=== PATIENT | male | born 1935 | race Caucasian/White ===

== ENCOUNTER 2016-12-12 08:38 | Outpatient (CLI) | payer MEDICARE, OTHER | END 2016-12-12 08:39 | disposition home or self-care (01) | DX: I80.9 Phlebitis and thrombophlebitis of unspecified site (principal); E78.5 Hyperlipidemia, unspecified; K59.00 Constipation, unspecified; N40.1 Benign prostatic hyperplasia with lower urinary tract symptoms ==

== ENCOUNTER 2017-12-10 09:23 | Outpatient (CLI) | payer MEDICARE, OTHER ==
[2017-12-10 13:08] LABS: BASOPHILS % (AUTO) 0.8 %; EOSINOPHILS # (AUTO) 0.3 10^3/uL (0.0-0.7); EOSINOPHILS % (AUTO) 4.2 %; HGB - HEMOGLOBIN 15.6 g/dL (14.0-18.0); LYMPHOCYTES # (AUTO) 1.3 10^3/uL (1.5-3.5); LYMPHOCYTES % (AUTO) 21.6 %; MEAN CORPUSCULAR HEMOGLOBIN 31.4 pg (27.0-31.0); MEAN CORPUSCULAR HGB CONC 33.8 g/dL (32.0-36.0); MEAN CORPUSCULAR VOLUME 92.9 fL (80.0-94.0); MONOCYTES # (AUTO) 0.5 10^3/uL (0.0-1.0); MONOCYTES % (AUTO) 8.8 %; NEUTROPHILS # (AUTO) 3.9 10^3/uL (1.5-6.6); NEUTROPHILS % (AUTO) 64.6 %; PLT - PLATELET COUNT 231 10^3/uL (130-450); RED BLOOD COUNT 4.97 10^6/uL (4.70-6.10); RED CELL DISTRIBUTION WIDTH 14.2 % (12.0-15.0)
[2017-12-10 13:23] LABS: ALBUMIN 4.1 g/dL (3.2-5.5); ALBUMIN/GLOBULIN RATIO 1.9 (1.0-2.2); ALKALINE PHOSPHATASE 54 IU/L (42-121); ALT ALANINE AMINOTRANSFERASE 16 IU/L (10-60); AST ASPARTATE AMINOTRANSFERASE 16 IU/L (10-42); BILIRUBIN,TOTAL 0.8 mg/dL (0.2-1.0); BUN - BLOOD UREA NITROGEN 25 mg/dL (6-20); CALCIUM 8.9 mg/dL (8.5-10.3); CARBON DIOXIDE - CO2 28 mmol/L (21-32); CHLORIDE 106 mmol/L (101-111); CHOL/HDL RATIO 3.2 (<5.0); CHOLESTEROL 186 mg/dL; CREATININE 0.8 mg/dL (0.6-1.2); GFR - MDRD 92 (>89); GLUCOSE 92 mg/dL (70-100); HDL CHOLESTEROL 59 mg/dL; LDL CHOLESTEROL,CALCULATED 108 mg/dL; LDL/HDL RATIO 1.8 (<3.6); SODIUM 139 mmol/L (135-145); TOTAL PROTEIN 6.3 g/dL (6.7-8.2); VLDL CHOLESTEROL 19 mg/dL
[2017-12-10 13:39] LABS: PLATELET ESTIMATE, MANUAL NORMAL (130-450,000) (NORMAL); PLATELET MORPHOLOGY 2+ GIANT PLATELETS (NORMAL); RBC MORPHOLOGY (MULTIPLE) NORMAL APPEARANCE (NORMAL)
== END 2017-12-10 09:24 | disposition home or self-care (01) ==
LOC: LAB.WCP 09:23
PROVIDERS: ATTEND Family Medicine
DX: E78.5 Hyperlipidemia, unspecified (principal)
CPT/HCPCS: 36415; 80053; 80061; 83721; 85025

== ENCOUNTER 2018-01-30 07:42 | Day surgery (SDC) | payer MEDICARE, OTHER ==
[~2018-01-30 07:42] MED LIST: BRIMONIDINE 0.2% OPHTH DROPS 5 ML ONE; BSS/LIDOCAINE/EPINEPHRINE 1 ML SYRINGE ONE; CYCLOPENTOLATE 1% OPHTH DROPS 2 ML ONE; EPINEPHrine 1 MG/ML AMP ONE; KETOROLAC 0.45% OPHTH DROPS ONE; PHENYLEPHRINE 2.5% OPHTH 2 ML DROPS ONE; PROPARACAINE 0.5% OPHTH DROPS 15 ML ONE; TIMOLOL 0.5% OPHTH DROPS ONE; TRIAMCIN/MOXIFLOX OPHTHALMIC 0.6 ML VIAL IO ONE
[2018-01-30] MEDS ORDERED: LACTATED RINGERS 500 ML IV ONE (08:00)
[2018-01-30] MEDS ORDERED: KETOROLAC 0.45% OPHTH DROPS RIGHTEYE ONE (08:06)
[2018-01-30] MEDS ORDERED: CYCLOPENTOLATE 1% OPHTH DROPS 2 ML RIGHTEYE ONE (08:07)
[2018-01-30] MEDS ORDERED: PROPARACAINE 0.5% OPHTH DROPS 15 ML RIGHTEYE ONE ×2 (08:07→09:19)
[2018-01-30] MEDS ORDERED: PHENYLEPHRINE 2.5% OPHTH 2 ML DROPS RIGHTEYE ONE (08:07)
[2018-01-30] MEDS ORDERED: MIDAZOLAM 2 MG/2 ML VIAL IVP ONE (09:06)
[2018-01-30] MEDS ORDERED: EPINEPHrine 1 MG/ML AMP IR ONE (09:18)
[2018-01-30] MEDS ORDERED: TIMOLOL 0.5% OPHTH DROPS OPTH ONE (09:18)
[2018-01-30] MEDS ORDERED: CHONDR SULF/HYALURONATE SYRINGE IO ONE (09:18)
[2018-01-30] MEDS ORDERED: BRIMONIDINE 0.2% OPHTH DROPS 5 ML OPTH ONE (09:18)
[2018-01-30] MEDS ORDERED: BSS/LIDOCAINE/EPINEPHRINE 1 ML SYRINGE IO ONE (09:19)
[2018-01-30] MEDS ORDERED: VANCOMYCIN OPHTHALMI 8MG/0.8ML 8 MG/0.8 ML SYRINGE IO ONE (09:19)
[2018-01-30 09:36] VITALS: BP 113/66
--- NOTE | 2018-01-30 16:21 | OPERATIVE REPORT ---
DATE OF SERVICE: 01/30/2018 Physician: Sami Brewer MD PREOPERATIVE DIAGNOSIS: Visually significant cataract right eye. This was his first cataract surgery. This was also a complex cataract surgery due to floppy iris and poor dilation due to the use of Flomax; therefore, a Malyugin ring was used during the surgery. POSTOPERATIVE DIAGNOSIS: Visually significant cataract right eye. This was his first cataract surgery. This was also a complex cataract surgery due to floppy iris and poor dilation due to the use of Flomax; therefore, a Malyugin ring was used during the surgery. PROCEDURE: Phacoemulsification with posterior chamber intraocular lens implant, right eye. SURGEON: Sami Brewer MD ANESTHESIA: Monitored anesthesia care. COMPLICATIONS: None. OPERATIVE INDICATIONS: This is an 82-year-old man with progressive vision loss in the right eye due to 2-3+ nuclear sclerotic cataract. Best corrected visual acuity was 20/25 with glare to 20/70 in the right eye. Indications for surgery were overall decrease in vision, difficulty driving in low light or at night, difficulty driving at night because of headlights from other vehicles, and difficulty with glare or bright lights in any situation. He was consented at length concerning risks and benefits of cataract surgery, after which he expressed a desire to proceed with surgery. OPERATIVE PROCEDURE: The patient was taken into OR #3 and placed under monitored anesthesia care. A surgical timeout was conducted confirming correct patient, correct procedure, and correct surgical site. He was given topical anesthesia and then prepped and draped in the usual sterile fashion. The eye was entered at the 12 and 9-o'clock positions. Intracameral Shugarcaine was injected into the anterior chamber followed by Viscoat. A 7 mm Malyugin ring was then injected into the anterior chamber and engaged the pupil at 4 points to dilate the pupil. A continuous-tear curvilinear capsulorrhexis was then performed. Nucleus was hydrodissected and phacoemulsified. The cortex was evacuated using automated infusion and aspiration. Provisc was injected in the capsular bag and a 17.5 diopter intraocular lens was inserted into the bag. The Malyugin ring was then disinserted from the pupillary margin and removed from the anterior chamber. Approximately 0.8 mL of a mixture of triamcinolone and moxifloxacin was injected subconjunctivally in the superior quadrant for infection and inflammation prophylaxis. An additional 0.3 mL of vancomycin was also injected subconjunctivally in the superior quadrant. I and A was used to evacuate the viscoelastic material. The eye was inflated to physiologic pressure using balanced salt solution and found to be watertight. The patient was taken from the operating room in good condition, given postop instructions. TD: 01/30/2018 09:40
== END 2018-01-30 07:43 | disposition home or self-care (01) ==
LOC: SDS 07:42
PROVIDERS: ATTEND Ophthalmology
PROC: 08RJ3JZ Replacement of Right Lens with Synthetic Substitute, Percutaneous Approach (ICD-10-PCS; principal; 2018-01-30 09:00)
DX: H25.811 Combined forms of age-related cataract, right eye (principal); H21.81 Floppy iris syndrome; T44.6X5A Adverse effect of alpha-adrenoreceptor antagonists, initial encounter; N40.0 Benign prostatic hyperplasia without lower urinary tract symptoms; Z79.82 Long term (current) use of aspirin
CPT/HCPCS: 66982; A9270; J3490; V2632

== ENCOUNTER 2018-02-27 06:15 | Day surgery (SDC) | payer MEDICARE, OTHER ==
[2018-02-27] MEDS ORDERED: PHENYLEPHRINE 2.5% OPHTH 2 ML DROPS ONE (06:38)
[2018-02-27] MEDS ORDERED: KETOROLAC 0.45% OPHTH DROPS ONE (06:38)
[2018-02-27] MEDS ORDERED: CYCLOPENTOLATE 1% OPHTH DROPS 2 ML ONE (06:39)
[2018-02-27] MEDS ORDERED: PROPARACAINE 0.5% OPHTH DROPS 15 ML ONE (06:39)
[2018-02-27] MEDS ORDERED: CYCLOPENTOLATE 1% OPHTH DROPS 2 ML LEFTEYE ONE (06:45)
[2018-02-27] MEDS ORDERED: PHENYLEPHRINE 2.5% OPHTH 2 ML DROPS LEFTEYE ONE (06:46)
[2018-02-27] MEDS ORDERED: KETOROLAC 0.45% OPHTH DROPS LEFTEYE ONE (06:46)
[2018-02-27] MEDS ORDERED: PROPARACAINE 0.5% OPHTH DROPS 15 ML LEFTEYE ONE ×2 (06:46→07:43)
[2018-02-27] MEDS ORDERED: LACTATED RINGERS 500 ML IV ONE (06:57)
[2018-02-27] MEDS ORDERED: EPINEPHrine 1 MG/ML AMP ONE (07:12)
[2018-02-27] MEDS ORDERED: TRIAMCIN/MOXIFLOX OPHTHALMIC 0.6 ML VIAL IO ONE (07:12)
[2018-02-27] MEDS ORDERED: VANCOMYCIN OPHTHALMI 8MG/0.8ML 8 MG/0.8 ML SYRINGE IO ONE (07:13)
[2018-02-27] MEDS ORDERED: BRIMONIDINE 0.2% OPHTH DROPS 5 ML ONE (07:13)
[2018-02-27] MEDS ORDERED: BSS/LIDOCAINE/EPINEPHRINE 1 ML SYRINGE ONE (07:13)
[2018-02-27] MEDS ORDERED: TIMOLOL 0.5% OPHTH DROPS ONE (07:13)
[2018-02-27] MEDS ORDERED: MIDAZOLAM 2 MG/2 ML VIAL IVP ONE (07:33)
[2018-02-27] MEDS ORDERED: BRIMONIDINE 0.2% OPHTH DROPS 5 ML OPTH ONE (07:41)
[2018-02-27] MEDS ORDERED: CHONDR SULF/HYALURONATE SYRINGE IO ONE (07:42)
[2018-02-27] MEDS ORDERED: EPINEPHrine 1 MG/ML AMP IR ONE (07:42)
[2018-02-27] MEDS ORDERED: TIMOLOL 0.5% OPHTH DROPS OPTH ONE (07:42)
[2018-02-27] MEDS ORDERED: BSS/LIDOCAINE/EPINEPHRINE 1 ML SYRINGE IO ONE (07:43)
[2018-02-27 08:02] VITALS: BP 116/67
--- NOTE | 2018-02-27 10:03 | OPERATIVE REPORT ---
DATE OF SERVICE: 02/27/2018 Physician: Sami Brewer MD PREOPERATIVE DIAGNOSIS: Visually significant cataract, left eye. This is a complex cataract, due to floppy iris from Flomax, requiring pupil expansion with Malyugin ring. Cataract surgery was performed on the right eye on 01/30/2018. POSTOPERATIVE DIAGNOSIS: Visually significant cataract, left eye. This is a complex cataract, due to floppy iris from Flomax, requiring pupil expansion with Malyugin ring. Cataract surgery was performed on the right eye on 01/30/2018. PROCEDURE: Phacoemulsification with posterior chamber intraocular lens implant, left eye. SURGEON: Sami Brewer MD ANESTHESIA: Monitored anesthesia care. COMPLICATIONS: None. INDICATIONS: The patient is an 82-year-old man with progressive vision loss in the left eye due to 2-3+ nuclear sclerotic cataract. Best corrected visual acuity was 20/20, with glare to 20/400 in the left eye. Indications for surgery were difficulty driving at night because of head lights from other vehicles, and/or street lights, and difficulty with glare or bright lights in any situation. He was consented at length concerning risks and benefits of cataract surgery, after which he expressed a desire to proceed with surgery. OPERATIVE PROCEDURE: The patient was taken to OR #3 and placed under monitored anesthesia care. A surgical timeout was conducted confirming correct patient, correct procedure, and correct surgical site. He was given topical anesthesia and then prepped and draped in the usual sterile fashion. The eye was entered at the 6 and 3 o'clock positions. Intracameral Shugarcaine was injected into the anterior chamber, followed by Viscoat. A 7 mm Malyugin ring was then injected into the anterior chamber, and engaged the pupil margin at 4 points to expand the pupil. A continuous-tear curvilinear capsulorrhexis was then performed. The nucleus was hydrodissected and phacoemulsified. The cortex was evacuated using automated infusion and aspiration. Provisc was injected in the capsular bag, and a 17.0 diopter intraocular lens inserted in the bag. The Malyugin ring was disinserted from the pupil margin and removed from the anterior chamber. I and A was then used to evacuate the viscoelastic materials. The eye was inflated to physiologic pressure using balanced salt solution, and found to be watertight. Approximately 0.8 mL of a mixture of triamcinolone, moxifloxacin, and vancomycin was injected subconjunctivally in the superior quadrant for infection and inflammation prophylaxis. The patient was then taken from the Operating Room in good condition, given postop instructions. TD: 02/27/2018 08:10
== END 2018-02-27 06:16 | disposition home or self-care (01) ==
LOC: SDS 06:15
PROVIDERS: ATTEND Ophthalmology
PROC: 08RK3JZ Replacement of Left Lens with Synthetic Substitute, Percutaneous Approach (ICD-10-PCS; principal; 2018-02-27 07:30)
DX: H25.12 Age-related nuclear cataract, left eye (principal); N40.0 Benign prostatic hyperplasia without lower urinary tract symptoms; H21.81 Floppy iris syndrome; T44.6X5A Adverse effect of alpha-adrenoreceptor antagonists, initial encounter
CPT/HCPCS: 66982; A9270; J3490; V2632

== ENCOUNTER 2018-07-02 16:26 | Outpatient (CLI) | payer MEDICARE, OTHER ==
--- NOTE | 2018-07-03 13:05 | MRI Report ---
Reason: LUMBRAR DISC PROLAPSE WITH RADICULOPATHY Procedure Date: 07/02/2018 Accession Number: [id number] / [id number] Procedure: MRI - Lumbar Spine W/O CPT Code: FULL RESULT: EXAM: MRI LUMBAR SPINE WITHOUT CONTRAST EXAM DATE: 07/02/2018 04:57 PM. CLINICAL HISTORY: Lumbar disk prolapse with radiculopathy. COMPARISON: LUMBAR SPINE W/O 01/13/2013 9:59 AM. TECHNIQUE: Multiplanar, multisequence T1-weighted and fluid-sensitive sequences of the lumbar spine from T12 to S1 without contrast. Other: None. FINDINGS: Spinal Canal: The conus terminates at L1. The conus medullaris and cauda equina are unremarkable. Alignment: No scoliosis. There is about 2.5 mm of anterolisthesis at L2-L3. Bone Marrow: Five [id number] lumbar vertebral bodies are assumed. No gross fractures or bone lesions. No bone marrow replacement. Disk Levels/Facets: T12-L1: Some disk dehydration. No bulge or protrusion. No stenosis. L1-L2: Mild anterolisthesis, some disk uncovering, broad-based disk bulge, hypertrophic facets also seen. Moderate central stenosis. Mild bilateral foraminal stenosis. L2-L3: Disk space height loss, broad-based disk bulge. Prominent facets. No central or foraminal stenosis. L3-L4: Disk space height loss, prominent facets. No central or foraminal stenosis. L4-L5: Disk space height loss, broad-based disk bulge and annular tear. Hypertrophic facets, short pedicles and prominent ligamentum flavum. Moderate central stenosis. Series 601 image 14. Moderate bilateral foraminal stenosis also seen. Central stenosis is worse, foraminal stenosis is about the same. L5-S1: Mild broad-based disk bulge is seen. Prominent facets, disk space height loss. No central stenosis. Moderate bilateral foraminal stenosis. Musculature: Prominent fatty atrophy of the multifidus musculature. Other: Fairly prominent urinary bladder is noted on the previous exam. IMPRESSION: 1. Spinal cord terminates at L1 which is normal. No scoliosis. About 2.5 mm anterolisthesis at L2-L3. Moderate fatty atrophy of the multifidus muscle. Prominent urinary bladder. 2. L2-L3 shows mild anterolisthesis, some disk uncovering, and a broad-based disk bulge. Moderate central stenosis and mild bilateral foraminal stenosis. 3. L2-L3 shows no central or foraminal stenosis, some disk space height loss. 4. L3-L4 shows no stenosis, some disk space height loss. 5. L4-L5 shows broad-based disk bulge, annular tear and hypertrophic facets with short pedicles and prominent ligamentum flavum creating moderate central stenosis. It shows some progression. Moderate bilateral foraminal stenosis is about the same. 6. L5-S1 shows a mild broad-based disk bulge and prominent facets. Disk space height loss. No central stenosis and moderate bilateral foraminal stenosis. Comment: The following findings are so common in adults without low back pain that while we report their presence, they must be interpreted with caution and in the context of the clinical situation. (Reference Fernandok et al, Spine 2001) Prevalence of findings in patients without low back pain: Disk degeneration (any evidence): 92% Disk desiccation/T2 signal loss: 83% Disk height loss: 56% Disk bulge: 64% Disk protrusion: 32% Annular tear/high intensity zone: 38% RADIA
== END 2018-07-02 16:27 | disposition home or self-care (01) ==
LOC: DI 16:26
PROVIDERS: ATTEND Family Medicine
DX: M47.9 Spondylosis, unspecified (principal); M51.36 Other intervertebral disc degeneration, lumbar region; M43.16 Spondylolisthesis, lumbar region; M48.061 Spinal stenosis, lumbar region without neurogenic claudication; M51.37 Other intervertebral disc degeneration, lumbosacral region; M48.07 Spinal stenosis, lumbosacral region; M51.35 Other intervertebral disc degeneration, thoracolumbar region
CPT/HCPCS: 72148

== ENCOUNTER 2018-12-03 08:00 | Outpatient (CLI) | payer MEDICARE, OTHER ==
[2018-12-03 19:21] LABS: BASOPHILS # (AUTO) 0.1 10^3/uL (0.0-0.1); BASOPHILS % (AUTO) 0.8 %; EOSINOPHILS # (AUTO) 0.2 10^3/uL (0.0-0.7); EOSINOPHILS % (AUTO) 3.4 %; HGB - HEMOGLOBIN 15.7 g/dL (14.0-18.0); LYMPHOCYTES # (AUTO) 1.4 10^3/uL (1.5-3.5); MEAN CORPUSCULAR HEMOGLOBIN 31.1 pg (27.0-31.0); MEAN CORPUSCULAR HGB CONC 33.4 g/dL (32.0-36.0); MEAN PLATELET VOLUME 10.1 fL (7.4-11.4); MONOCYTES # (AUTO) 0.7 10^3/uL (0.0-1.0); MONOCYTES % (AUTO) 9.9 %; NEUTROPHILS # (AUTO) 4.5 10^3/uL (1.5-6.6); NEUTROPHILS % (AUTO) 65.9 %; PLT - PLATELET COUNT 248 10^3/uL (130-450); RED BLOOD COUNT 5.05 10^6/uL (4.70-6.10); RED CELL DISTRIBUTION WIDTH 14.6 % (12.0-15.0); WHITE BLOOD COUNT 6.9 x10^3/uL (4.8-10.8)
[2018-12-03 19:39] LABS: ALBUMIN/GLOBULIN RATIO 1.7 (1.0-2.2); BILIRUBIN,TOTAL 0.8 mg/dL (0.2-1.0); CALCIUM 8.8 mg/dL (8.5-10.3); CREATININE 0.8 mg/dL (0.6-1.2); TOTAL PROTEIN 6.3 g/dL (6.7-8.2)
== END 2018-12-03 23:59 | disposition home or self-care (01) ==
LOC: LAB.WCP 08:00
PROVIDERS: ATTEND Family Medicine
DX: R00.2 Palpitations (principal); M51.16 Intervertebral disc disorders with radiculopathy, lumbar region
CPT/HCPCS: 36415; 80053; 85025

== ENCOUNTER 2019-08-12 14:50 | Outpatient (CLI) | payer MEDICARE, OTHER ==
--- NOTE | 2019-08-13 03:26 | CT Report ---
Reason: SPONDYLOISTHESIS LUMBAR REGION Procedure Date: 08/12/2019 Accession Number: [id number] / [id number] Procedure: CT - LUMBAR SPINE WO CPT Code: Final Report FULL RESULT: EXAM: CT LUMBAR SPINE WITHOUT CONTRAST EXAM DATE: 08/12/2019 03:12 PM. CLINICAL HISTORY: SPONDYLOLISTHESIS LUMBAR REGION. COMPARISONS: LUMBAR SPINE W/O 07/02/2018 4:57 PM ABDOMEN/PELVIS W/O 07/26/2015 12:59 PM. TECHNIQUE: Thin-section axial images were acquired of the lumbar spine from T12 to S1 without contrast. Post-processing: Coronal and sagittal reformats. Other: None. In accordance with CT protocol optimization, one or more of the following dose reduction techniques were utilized for this exam: automated exposure control, adjustment of mA and/or KV based on patient size, or use of iterative reconstructive technique. FINDINGS: Alignment: There is straightening of usual lumbar lordosis. Trace anterolisthesis is visualized at L1 relative to L2, not definitely changed. Bones: Five [id number]-[id number] lumbar vertebral bodies are present. Since the prior MRI the patient has undergone partial laminectomy, interbody fusion and posterior instrumented fusion at L4-L5-S1. There is no evidence of acute fracture. Mild multilevel endplate sclerosis is noted. Disk Levels/Facets: T12-L1: Unremarkable. L1-L2: Anterolisthesis is again noted with uncovering of the disk. Mild to moderate facet/ligamentum flavum hypertrophy is visualized. Constellation of findings produces moderate central canal stenosis, not definitely changed. L2-L3: Disk height loss has progressed slightly. Diffuse endplate osteophytosis is noted. Mild facet hypertrophy is again noted. There is no significant central canal or neuroforaminal stenosis. L3-L4: Moderate disk height loss is again noted. Mild to moderate facet/ligamentum flavum hypertrophy is visualized. There is no significant central canal or neuroforaminal stenosis. L4-L5: Status post interval right hemilaminectomy and facetectomy with interbody and posterior fusion. Interbody device appears well positioned with mild surrounding lucency. There is no bridging osseous fusion across the disk space. Bilateral pedicle screws appear well positioned. Question mild lucency surrounding the pedicle screws. Previously visualized central canal stenosis appears to improved. Moderate left foraminal stenosis is not definitely changed. L5-S1: Status post right hemilaminectomy and facetectomy with interbody and posterior fusion. Pedicle screws are well-positioned with no surrounding lucency. Interbody device is well positioned. No definite effusion is visualized across the disk space. There is moderate bony foraminal stenosis. In addition, a left extraforaminal disk osteophyte complex contacts and displaces the exited left L5 nerve. The perineural fat is effaced and the nerve may be mildly enlarged. Musculature: Normal. No fatty atrophy. Other: Several hepatic cysts are partially visualized, not definitely changed compared to the prior abdominal CT from 2015. Atherosclerotic calcification is visualized throughout the imaged abdominal vasculature. IMPRESSION: 1. Interval L4-L5-S1 partial laminectomy and interbody fusion with posterior instrumentation. Hardware appears intact and well positioned. Question mild lucency surrounding the bilateral L4 pedicle screws. Mild loosening is not excluded. No significant osseous fusion across the L4-L5 or L5-S1 disk spaces. Improved appearance of previously visualized central canal stenosis and right L4-L5 foraminal stenosis. 2. Moderate bony foraminal stenosis at L5-S1. Left extraforaminal disk osteophyte complex also contacts and displaces the exiting left L5 nerve root. There is effacement of perineural fat and possible mild enlargement of the exiting L5 nerve. Correlate for symptoms of L5 radiculopathy. Consider repeat MRI for further evaluation. 3. Slight interval progression of degenerative disk disease at L2-L3. 4. Multilevel degenerative disk disease and facet arthropathy as otherwise outlined in detail above and/or described on the previous MRI report. [facility]
== END 2019-08-12 14:51 | disposition home or self-care (01) ==
LOC: DI 14:50
PROVIDERS: ATTEND Orthopaedic Surgery
DX: M43.16 Spondylolisthesis, lumbar region (principal); M51.37 Other intervertebral disc degeneration, lumbosacral region; M48.07 Spinal stenosis, lumbosacral region; Z98.1 Arthrodesis status
CPT/HCPCS: 72131

== ENCOUNTER 2020-04-08 13:44 | Outpatient (CLI) | payer MEDICARE, OTHER ==
[2020-04-08 18:12] LABS: BASOPHILS # (AUTO) 0.1 10^3/uL (0.0-0.1); BASOPHILS % (AUTO) 0.7 %; EOSINOPHILS # (AUTO) 0.3 10^3/uL (0.0-0.7); EOSINOPHILS % (AUTO) 3.6 %; LYMPHOCYTES # (AUTO) 1.3 10^3/uL (1.5-3.5); MEAN CORPUSCULAR HEMOGLOBIN 31.4 pg (27.0-31.0); MEAN CORPUSCULAR HGB CONC 31.5 g/dL (32.0-36.0); MEAN CORPUSCULAR VOLUME 99.7 fL (80.0-94.0); MEAN PLATELET VOLUME 11.5 fL (7.4-11.4); MONOCYTES # (AUTO) 0.6 10^3/uL (0.0-1.0); MONOCYTES % (AUTO) 8.4 %; PLT - PLATELET COUNT 315 10^3/uL (130-450); RED CELL DISTRIBUTION WIDTH 15.4 % (12.0-15.0); WHITE BLOOD COUNT 7.3 x10^3/uL (4.8-10.8)
[2020-04-08 18:25] LABS: ALBUMIN 3.8 g/dL (3.2-5.5); ALBUMIN/GLOBULIN RATIO 1.7 (1.0-2.2); BILIRUBIN,TOTAL 0.3 mg/dL (0.2-1.0); CALCIUM 9.2 mg/dL (8.5-10.3); TOTAL PROTEIN 6.1 g/dL (6.7-8.2)
== END 2020-04-08 23:59 | disposition home or self-care (01) ==
LOC: LAB.WCP 13:44
PROVIDERS: ATTEND Family Medicine
DX: K92.2 Gastrointestinal hemorrhage, unspecified (principal); I48.0 Paroxysmal atrial fibrillation
CPT/HCPCS: 36415; 80053; 82728; 83540; 84466; 85025

== ENCOUNTER 2020-05-04 12:52 | Outpatient (CLI) | payer MEDICARE, OTHER | END 2020-05-04 12:53 | disposition home or self-care (01) | LOC: DI 12:52 | PROVIDERS: ATTEND Physician Assistant Medical | DX: I48.0 Paroxysmal atrial fibrillation (principal); I35.1 Nonrheumatic aortic (valve) insufficiency | CPT/HCPCS: 93306 ==

== ENCOUNTER 2020-05-18 09:56 | Day surgery (SDC) | payer MEDICARE, OTHER ==
[2020-05-18] MEDS ORDERED: LACTATED RINGERS 1,000 ML IV ONE ×2 (10:41→13:41)
[2020-05-18] MEDS ORDERED: fentaNYL 250 MCG/5 ML VIAL IVP ONE (13:08)
[2020-05-18] MEDS ORDERED: MIDAZOLAM 2 MG/2 ML VIAL IVP ONE (13:08)
[2020-05-18] MEDS ORDERED: LIDOCAINE JELLY 2% 5 ML TUBE TOP ONE (13:33)
[2020-05-18 14:16] VITALS: BP 115/72
== END 2020-05-18 09:57 | disposition home or self-care (01) ==
LOC: SDS 09:56
PROVIDERS: ATTEND Surgery
PROC: 0DJD8ZZ Inspection of Lower Intestinal Tract, Via Natural or Artificial Opening Endoscopic (ICD-10-PCS; 2020-05-18)
PROC: 06LY4CC Occlusion of Hemorrhoidal Plexus with Extraluminal Device, Percutaneous Endoscopic Approach (ICD-10-PCS; principal; 2020-05-18 11:15)
DX: K64.2 Third degree hemorrhoids (principal); K57.30 Diverticulosis of large intestine without perforation or abscess without bleeding; Z86.010 Personal history of colon polyps; E78.5 Hyperlipidemia, unspecified; N40.1 Benign prostatic hyperplasia with lower urinary tract symptoms; N13.8 Other obstructive and reflux uropathy; Z86.718 Personal history of other venous thrombosis and embolism; K58.1 Irritable bowel syndrome with constipation; Z87.891 Personal history of nicotine dependence
CPT/HCPCS: 45378; 46221; J3010; J3490; J7120

== ENCOUNTER 2020-05-21 11:30 | Outpatient (CLI) | payer SELFPAY | END 2020-05-21 23:59 | disposition home or self-care (01) | LOC: LAB 11:30 | PROVIDERS: ATTEND Emergency Medicine | DX: Z20.828 Contact with and (suspected) exposure to other viral communicable diseases (principal) ==

== ENCOUNTER 2020-05-31 08:00 | Outpatient (CLI) | payer MEDICARE, OTHER | END 2020-05-31 23:59 | disposition home or self-care (01) | LOC: LAB.WCP 08:00 | PROVIDERS: ATTEND Family Medicine | DX: Z53.9 Procedure and treatment not carried out, unspecified reason (principal) ==

== ENCOUNTER 2020-08-30 10:21 | Outpatient (CLI) | payer MEDICARE, OTHER ==
--- NOTE | 2020-08-30 13:23 | XRAY Report ---
PROCEDURE: Hand 2 View LT INDICATIONS: LEFT THUMB PAIN TECHNIQUE: 2 views of the hand(s) acquired. COMPARISON: None FINDINGS: Bones: No fractures or dislocations. No suspicious bony lesions. There is mild degenerative osteoar thritis at the first MCP joint. Soft tissues: No suspicious soft tissue calcifications. IMPRESSION: No acute trauma found. Mild degenerative change at the first metacarpal-phalangeal joint. No erosive arthritis is suspected. Reviewed by: Lázaro Montaño MD on 08/30/2020 1:22 PM [facility] Approved by: Lázaro Montaño MD on 08/30/2020 1:22 PM [facility] Station ID: [id number]
== END 2020-08-30 23:59 | disposition home or self-care (01) ==
LOC: DI.WCP 10:21
PROVIDERS: ATTEND Physician Assistant
DX: M79.645 Pain in left finger(s) (principal); M18.12 Unilateral primary osteoarthritis of first carpometacarpal joint, left hand

== ENCOUNTER 2020-11-15 07:00 | Outpatient (CLI) | payer MEDICARE, OTHER ==
[2020-11-15 17:51] LABS: BASOPHILS % (AUTO) 0.5 %; EOSINOPHILS # (AUTO) 0.2 10^3/uL (0.0-0.7); EOSINOPHILS % (AUTO) 2.3 %; HCT - HEMATOCRIT 50.3 % (42.0-52.0); HGB - HEMOGLOBIN 15.9 g/dL (14.0-18.0); LYMPHOCYTES # (AUTO) 1.3 10^3/uL (1.5-3.5); LYMPHOCYTES % (AUTO) 16.7 %; MEAN CORPUSCULAR HEMOGLOBIN 29.9 pg (27.0-31.0); MEAN CORPUSCULAR HGB CONC 31.6 g/dL (32.0-36.0); MEAN CORPUSCULAR VOLUME 94.5 fL (80.0-94.0); MEAN PLATELET VOLUME 12.4 fL (7.4-11.4); MONOCYTES # (AUTO) 0.8 10^3/uL (0.0-1.0); MONOCYTES % (AUTO) 10.6 %; NEUTROPHILS # (AUTO) 5.2 10^3/uL (1.5-6.6); NEUTROPHILS % (AUTO) 69.8 %; PLT - PLATELET COUNT 258 10^3/uL (130-450); RED BLOOD COUNT 5.32 10^6/uL (4.70-6.10); RED CELL DISTRIBUTION WIDTH 15.7 % (12.0-15.0); WHITE BLOOD COUNT 7.5 x10^3/uL (4.8-10.8)
[2020-11-15 18:10] LABS: ALBUMIN 4.1 g/dL (3.2-5.5); ALBUMIN/GLOBULIN RATIO 1.6 (1.0-2.2); BILIRUBIN,TOTAL 0.7 mg/dL (0.2-1.0); CALCIUM 9.4 mg/dL (8.5-10.3); CREATININE 0.9 mg/dL (0.6-1.2); POTASSIUM 4.8 mmol/L (3.5-5.0); TOTAL PROTEIN 6.6 g/dL (6.7-8.2)
== END 2020-11-15 23:59 | disposition home or self-care (01) ==
LOC: LAB.WCP 07:00
PROVIDERS: ATTEND Family Medicine
DX: I48.0 Paroxysmal atrial fibrillation (principal)
CPT/HCPCS: 36415; 80053; 85025

== ENCOUNTER 2022-06-28 08:25 | Outpatient (CLI) | payer MEDICARE, OTHER ==
[2022-06-28 08:36] LABS: BASOPHILS # (AUTO) 0.1 10^3/uL (0.0-0.1); BASOPHILS % (AUTO) 0.8 %; EOSINOPHILS # (AUTO) 0.3 10^3/uL (0.0-0.7); EOSINOPHILS % (AUTO) 3.6 %; HCT - HEMATOCRIT 50.4 % (42.0-52.0); LYMPHOCYTES # (AUTO) 1.7 10^3/uL (1.5-3.5); LYMPHOCYTES % (AUTO) 22.9 %; MEAN CORPUSCULAR HEMOGLOBIN 30.6 pg (27.0-31.0); MEAN CORPUSCULAR HGB CONC 31.7 g/dL (32.0-36.0); MEAN CORPUSCULAR VOLUME 96.4 fL (80.0-94.0); MEAN PLATELET VOLUME 10.8 fL (7.4-11.4); MONOCYTES # (AUTO) 0.8 10^3/uL (0.0-1.0); MONOCYTES % (AUTO) 10.4 %; NEUTROPHILS # (AUTO) 4.5 10^3/uL (1.5-6.6); PLT - PLATELET COUNT 267 10^3/uL (130-450); RED BLOOD COUNT 5.23 10^6/uL (4.70-6.10); RED CELL DISTRIBUTION WIDTH 14.3 % (12.0-15.0); WHITE BLOOD COUNT 7.3 x10^3/uL (4.8-10.8)
[2022-06-28 08:57] LABS: ALBUMIN/GLOBULIN RATIO 1.7 (1.0-2.2); ALKALINE PHOSPHATASE 66 IU/L (42-121); ALT ALANINE AMINOTRANSFERASE 20 IU/L (10-60); AST ASPARTATE AMINOTRANSFERASE 19 IU/L (10-42); BILIRUBIN,TOTAL 0.8 mg/dL (0.2-1.0); BUN - BLOOD UREA NITROGEN 26 mg/dL (6-20); CALCIUM 9.1 mg/dL (8.5-10.3); CARBON DIOXIDE - CO2 28 mmol/L (21-32); CHLORIDE 106 mmol/L (101-111); CHOL/HDL RATIO 2.6 (<5.0); CHOLESTEROL 182 mg/dL; CREATININE 0.8 mg/dL (0.6-1.2); GFR - MDRD 91 (>89); GLUCOSE 93 mg/dL (70-100); HDL CHOLESTEROL 69 mg/dL; LDL CHOLESTEROL,CALCULATED 100 mg/dL; LDL/HDL RATIO 1.4 (<3.6); POTASSIUM 4.4 mmol/L (3.5-5.0); SODIUM 141 mmol/L (135-145); TOTAL PROTEIN 6.3 g/dL (6.7-8.2); TRIGLYCERIDES 67 mg/dL; VLDL CHOLESTEROL 13 mg/dL
[2022-06-28 09:23] LABS: PSA TOTAL 0.63 ng/mL (0.000-2.000)
== END 2022-06-28 08:26 | disposition home or self-care (01) ==
LOC: LAB 08:25
PROVIDERS: ATTEND Physician Assistant
DX: E78.5 Hyperlipidemia, unspecified (principal); Z51.81 Encounter for therapeutic drug level monitoring; N40.1 Benign prostatic hyperplasia with lower urinary tract symptoms; N13.8 Other obstructive and reflux uropathy; R39.11 Hesitancy of micturition
CPT/HCPCS: 36415; 80053; 80061; 83721; 84153; 85025

== ENCOUNTER 2022-07-18 14:40 | Outpatient (CLI) | payer MEDICARE, OTHER | END 2022-07-18 14:41 | disposition home or self-care (01) | LOC: DI 14:40 | PROVIDERS: ATTEND Physician Assistant | DX: I08.2 Rheumatic disorders of both aortic and tricuspid valves (principal); I71.21 Aneurysm of the ascending aorta, without rupture; I71.9 Aortic aneurysm of unspecified site, without rupture | CPT/HCPCS: 93306 ==

== ENCOUNTER 2022-11-15 14:27 | Outpatient (CLI) | payer MEDICARE, OTHER ==
--- NOTE | 2022-11-15 16:10 | Ultrasound Report ---
PROCEDURE: Duplex Ext Veins Left INDICATIONS: SWELLING OF ARM TECHNIQUE: Real-time imaging, as well as color and pulse Doppler interrogation, were performed of the lower extr emity deep veins from the inguinal ligament to the popliteal fossa. COMPARISON: None. FINDINGS: The deep veins are normally compressible, and free of intraluminal thrombus. Color and pu lse Doppler demonstrate normal phasic intraluminal flow. There is normal augmentation response to di stal compression maneuver. IMPRESSION: No evidence of DVT in visualized left upper extremity veins. Reviewed by: Ciro Nicole MD on 11/15/2022 3:09 PM [facility] Approved by: Ciro Nicole MD on 11/15/2022 3:09 PM [facility] Station ID: [id number]
== END 2022-11-15 14:28 | disposition home or self-care (01) ==
LOC: DI 14:27
PROVIDERS: ATTEND Physician Assistant
DX: R22.32 Localized swelling, mass and lump, left upper limb (principal)

== ENCOUNTER 2023-04-04 10:04 | Outpatient (CLI) | payer MEDICARE, OTHER ==
--- NOTE | 2023-04-04 11:28 | XRAY Report ---
PROCEDURE: Cervical Spine Comp w/Flex/Ext INDICATIONS: ARTHRITIS,CERVICAL SPINE TECHNIQUE: 7 views of the cervical spine were acquired. COMPARISON: Cervical spine radiographs 05/31/2022 FINDINGS: Bones: No fractures or dislocations to the C7 level. No suspicious bony lesions. To millimeter grad e 1 retrolisthesis of C2-3. 4 mm grade 1 retrolisthesis at C3-4. 2 mm grade 1 anterolisthesis of C4-5 . Multiple displaced narrowing degenerative endplate changes. Multilevel degenerative facet hypertrop hy. There is limited range of motion between flexion and extension. On flexion view, C3-4 retrolisthe sis reduces to approximately 1 mm. C2-3 and C4-5 alignment does not appear significantly changed. Obl ique views demonstrate multifocal left neural foraminal narrowing at the mid cervical spine as before . Soft tissues: Prevertebral soft tissues are normal in thickness. IMPRESSION: 1.Multilevel cervical spondylosis and degenerative spondylolistheses, similar when compared to the pr ior exam from 05/31/2022. 2.Suspected dynamic instability at C3-4 as previously seen. 3.Multifocal left-sided neural foraminal narrowing, which has not significantly changed. Reviewed by: Celso Mendosa MD on 04/04/2023 11:27 AM PDT Approved by: Celso Mendosa MD on 04/04/2023 11:27 AM PDT Station ID: [id number]
== END 2023-04-04 10:05 | disposition home or self-care (01) ==
LOC: DI 10:04
PROVIDERS: ATTEND Physician Assistant
DX: M47.812 Spondylosis without myelopathy or radiculopathy, cervical region (principal); M43.12 Spondylolisthesis, cervical region; M48.02 Spinal stenosis, cervical region

== ENCOUNTER 2023-08-28 18:33 | Emergency (ER) | payer MEDICARE, OTHER ==
[2023-08-28] MEDS ORDERED: hydrALAZINE 10 MG TABLET PO STA (19:03)
--- NOTE | 2023-08-28 19:05 | ED Physician Documentation ---
PD HPI CHEST PAIN - Stated complaint Stated Complaint: THACKER/HIGH BP - Chief complaint Chief Complaint: Cardiac - History obtained from History obtained from: Patient - Additional information Additional information: 88-year-old gentleman with history of thoracic aortic aneurysm, degenerative disease in the back, and migraine headaches. He developed a fairly minor headache today that was migratory and gradual in onset. He took some ibuprofen for this around 3 PM and then 6:00 was feeling "weird" and took his blood pressure and it was the range of 170/60. He has no chest pain with this. No shortness of breath. It is a minor gradual onset headache. No fevers. PD PAST MEDICAL HISTORY - Past Medical History Cardiovascular: Deep vein thrombosis, Atrial fibrillation, Other Respiratory: None Neuro: Migraines Endocrine/Autoimmune: None GI: GERD, Hemorrhoids : Benign prostate hypertrophy HEENT: None Psych: None Musculoskeletal: Osteoarthritis Derm: None Other Past Medical History: aortic anyerysm-being monitored - Past Surgical History Past Surgical History: Yes General: Other Ortho: Shoulder arthroplasty, Other HEENT: Cataracts - Present Medications Home Medications: Ambulatory Orders Medication Instructions Recorded Confirmed Finasteride 5 mg PO DAILY 07/26/15 08/28/23 Tamsulosin [Flomax] 0.4 mg PO DAILY 07/26/15 08/28/23 Multivitamin [Multiple Vitamins] 1 each PO DAILY 01/29/18 08/28/23 SUMAtriptan succinate [Sumatriptan 50 mg PO BID PRN 03/31/20 08/28/23 Succinate] Propranolol [Inderal] 10 mg PO BID 08/28/23 08/28/23 - Allergies Allergies/Adverse Reactions: Allergies Allergy/AdvReac Type Severity Reaction Status Date / Time No Known Drug Allergies Allergy Verified 03/31/20 03:15 - Social History Does the pt smoke?: No Smoking Status: Never smoker Does the pt drink ETOH?: Yes Does the pt have substance abuse?: No - Immunizations Immunizations are current?: Yes - POLST Patient has POLST: No PD ED PE NORMAL - Vitals Vital signs reviewed: Yes - General General: Alert and oriented X 3, No acute distress - HEENT HEENT: PERRL, EOMI - Neck Neck: Supple, no meningeal sign, No bony TTP - Cardiac Cardiac: RRR, Other (diastolic murmur) - Respiratory Respiratory: No respiratory distress, Clear bilaterally - Abdomen Abdomen: Non tender - Extremities Extremities: Other - Neuro Neuro: Alert and oriented X 3, Normal speech Results - Vitals Vitals: Vital Signs - 24 hr 08/28/23 18:42 Temperature 36.6 C Heart Rate 68 Respiratory 18 Rate Blood Pressure 169/59 H O2 Saturation 99 Oxygen O2 Source Room air PD Medical Decision Making - ED course ED course: He has a headache which is minor at this point and really not concerning in the sound of it. He is more worried about his blood pressure which she took a few hours after taking ibuprofen. I discussed with him that ibuprofen can transiently raise her blood pressure. He actually has presurgical follow-up with Dr. Campoverde, examination supervisor tomorrow so discussed with him that it would be appropriate to give him a single dose of hydralazine but no prescription and have him check his blood pressure tomorrow with the examination supervisor. Departure - Departure Disposition: Home, Self Care Clinical Impression: High blood pressure Qualifiers: Hypertension type: unspecified Qualified Code(s): I10 - Essential (primary) hypertension Condition: Good Record reviewed to determine appropriate education?: Yes Instructions: ED Hypertension Poss Comments: You were seen today for a minor headache associated with high blood pressure. The high blood pressure did presents a few hours after taking ibuprofen which can transiently increase your blood pressure. We did give you a single dose of 10 mg of hydralazine here at approximately 7:15 PM. This will wear off overnight but if I am right then my suspicion is that your blood pressure should be back to your normal when you see the examination supervisor tomorrow morning. If so they can continue what ever management they think is appropriate. If your blood pressure is still elevated they can continue antihypertensive therapy.
[2023-08-28 19:33] VITALS: BP 149/63; O2SAT 99
== END 2023-08-28 19:28 | disposition home or self-care (01) ==
LOC: ED 18:33
DX: I10 Essential (primary) hypertension (principal); I48.91 Unspecified atrial fibrillation; Z86.718 Personal history of other venous thrombosis and embolism
CPT/HCPCS: 99282; 99284; A9270

== ENCOUNTER 2023-12-05 07:23 | Emergency (ER) | payer MEDICARE, OTHER ==
--- NOTE | 2023-12-05 08:49 | ED Physician Documentation ---
History of Present Illness - Stated complaint Stated Complaint: GI - Chief complaint Chief Complaint: Abd Pain - History obtained from History obtained from: Patient - Additonal information Additional information: The patient comes to the emergency department chief complaint of constipation. He states he has been on oxycodone for the last 9 days since the neck surgery and has not had a real bowel movement for 7 days. He states he has been eating hearty meals and has been taking his usual Metamucil and prune juice, which was his habit long before the surgery. He states he is given himself 2 enemas at home while he is put out a few "marbles" and brown water, he has not passed anything else. He states he feels bloated and full, but no nausea or abdominal pain. PD PAST MEDICAL HISTORY - Past Medical History Past Medical History: Yes Cardiovascular: Deep vein thrombosis, Atrial fibrillation Respiratory: None Neuro: Migraines Endocrine/Autoimmune: None GI: GERD, Hemorrhoids : Benign prostate hypertrophy HEENT: None Psych: None Musculoskeletal: Osteoarthritis Derm: None - Past Surgical History Past Surgical History: Yes General: Other Ortho: Shoulder arthroplasty, Spine surgery HEENT: Cataracts - Present Medications Home Medications: Ambulatory Orders Medication Instructions Recorded Confirmed Finasteride 5 mg PO DAILY 07/26/15 12/05/23 Tamsulosin [Flomax] 0.4 mg PO DAILY 07/26/15 12/05/23 Multivitamin [Multiple Vitamins] 1 each PO DAILY 01/29/18 12/05/23 SUMAtriptan succinate [Sumatriptan 50 mg PO BID PRN 03/31/20 12/05/23 Succinate] Docusate Sodium 250Mg Capsule 250 mg PO DAILY #10 cap 12/05/23 [Colace 250Mg Capsule] Magnesium Citrate 148 ml PO BID PRN #296 ml 12/05/23 Metoprolol Succinate [Toprol Xl] 25 mg PO DAILY 12/05/23 12/05/23 Oxycodone HCl/Acetaminophen 1 each PO DAILY 12/05/23 12/05/23 [Oxycodone-Acetaminophen 5-325] Pregabalin [Lyrica] 25 mg PO DAILY 12/05/23 12/05/23 Valsartan [Diovan] 40 mg PO DAILY 12/05/23 12/05/23 methocarbamoL [Methocarbamol] 500 mg PO DAILY 12/05/23 12/05/23 - Allergies Allergies/Adverse Reactions: Allergies Allergy/AdvReac Type Severity Reaction Status Date / Time No Known Drug Allergies Allergy Verified 12/05/23 08:07 - Social History Does the pt smoke?: No Smoking Status: Never smoker Does the pt drink ETOH?: Yes Does the pt have substance abuse?: No - Immunizations Immunizations are current?: Yes - POLST Patient has POLST: No PD ED PE NORMAL - Vitals Vital signs reviewed: Yes - General General: Alert and oriented X 3, No acute distress, Well developed/nourished - HEENT HEENT: Atraumatic, PERRL, EOMI, Moist mucous membranes - Neck Neck: Supple, no meningeal sign - Cardiac Cardiac: RRR, No murmur - Respiratory Respiratory: No respiratory distress, Clear bilaterally - Abdomen Abdomen: Soft, Non tender, Other (Mild distention, but soft.) - Rectal Rectal: Other (Normal external anatomy; rectum is empty on digital rectal exam with no mass or stool. No blood on the glove.) - Derm Derm: Normal color, Warm and dry, No rash - Extremities Extremities: No deformity - Neuro Neuro: Alert and oriented X 3 - Psych Psych: Normal mood, Normal affect Results - Vitals Vitals: Vital Signs - 24 hr 12/05/23 12/05/23 07:28 10:20 Temperature 36.1 C L 36.0 C L Heart Rate 86 80 Respiratory 15 18 Rate Blood Pressure 152/67 H 138/53 H O2 Saturation 99 98 Oxygen O2 Source Room air PD Medical Decision Making - ED course Complexity details: reviewed results, re-evaluated patient, considered differential, d/w patient ED course: The patient did not have any impacted stool that was reachable by digital rectal exam, and as such, I ordered an abdominal x-ray and a mineral oil enema. Abd XR showed no obstruction, mild to moderate fecal load. Enema yielded little results. I d/w pt that at this point, there is no evidence of serious constipation, and that I will prescribe a laxative and stool softener to help clear him out. After this, the effects of the oxycodone should be long past, and the pt may return to his usual regimen. Departure - Departure Disposition: 01 Home, Self Care Clinical Impression: Constipation Qualifiers: Constipation type: slow transit constipation Qualified Code(s): K59.01 - Slow transit constipation Condition: Stable Instructions: ED Constipation Prescriptions: Docusate Sodium 250Mg Capsule [Colace 250Mg Capsule] 250 mg PO DAILY #10 cap Magnesium Citrate 148 ml PO BID PRN #296 ml PRN Reason: Constipation Comments: Your x-ray shows stool higher up in your colon, but actually, you have a lot of bowel gas as well. You most likely need to allow time for your bowels to start working again and clear out the stool, as anything that can be reached by the enema has already been reached. Given the appearance of your x-ray, there is nothing concerning for bowel obstruction at this point, and you most likely just have some slow movement of your bowels that will resolve over the next few days as your intestines get back in motion after being on the pain medicine. I have prescribed a stool softener for you to take for the next 10 days, as well as a liquid laxative for you to take today and tomorrow morning. This should help to get your bowels moving, that may cause a little diarrhea. This is normal and will resolve on its own. Please be sure you are drinking plenty of water and eating plenty of fresh fruits and vegetables which are high in fiber and promote good soft stools. Please follow-up with your doctor as needed for further concerns with regard to constipation. Your prescriptions have been electronically transmitted to the [facility] pharmacy in [place]. Forms: PCP List Discharge Date/Time: 12/05/23 10:22
[2023-12-05] MEDS: MINERAL OIL ENEMA 133 ML BOTTLE RC STA (08:57)
--- NOTE | 2023-12-05 09:38 | XRAY Report ---
PROCEDURE: Abdomen 1 V INDICATIONS: constipation TECHNIQUE: One view of the abdomen acquired. COMPARISON: None. FINDINGS: Surgical changes and devices: Lower lumbar fusion hardware. Bowel: Bowel gas pattern is normal. Mild to moderate fecal load. Soft tissues: No suspicious abdominal calcifications. Visualized solid organ contours appear normal in size. Bones: No suspicious bony lesions. IMPRESSION: Normal bowel gas pattern. Mild to moderate fecal load. Reviewed by: Joey Khoury MD on 12/05/2023 9:37 AM PDT Approved by: Joey Khoury MD on 12/05/2023 9:37 AM PDT Station ID: [id number]
[2023-12-05 10:22] VITALS: BP 138/53; O2SAT 98
== END 2023-12-05 10:22 | disposition home or self-care (01) ==
LOC: ED 07:23
DX: K59.01 Slow transit constipation (principal); I48.91 Unspecified atrial fibrillation
CPT/HCPCS: 74018; 99283; A9270

== ENCOUNTER 2024-03-09 12:25 | Outpatient (CLI) | payer MEDICARE, OTHER ==
[2024-03-09 13:09] LABS: ALBUMIN 4.1 g/dL (3.2-5.5); BILIRUBIN,TOTAL 0.7 mg/dL (0.2-1.0); CALCIUM 9.3 mg/dL (8.5-10.3); CREATININE 0.9 mg/dL (0.6-1.3); POTASSIUM 4.7 mmol/L (3.5-4.5); TOTAL PROTEIN 6.2 g/dL (6.4-8.9)
== END 2024-03-09 12:26 | disposition home or self-care (01) ==
LOC: LAB 12:25
PROVIDERS: ATTEND Internal Medicine Cardiovascular Disease
DX: I71.21 Aneurysm of the ascending aorta, without rupture (principal); I10 Essential (primary) hypertension
CPT/HCPCS: 36415; 80053